=== PATIENT | male | born 1935 | race Caucasian/White ===

== ENCOUNTER 2016-04-29 15:08 | Day surgery (SDC) | payer MEDICARE, OTHER ==
[~2016-04-29] VITALS: Ht 182.9 cm; Wt 63.5 kg
[~2016-04-29 15:08] MED LIST: AMLODIPINE5 M1 PO; ASPIRIN 325MG325 MG PO; BACLOFEN 10MG T10 MG PO; CARDIZEM CD300 MG PO; CITALOPRAM20 MG PO; COREG 12.5 MG12.5 MG PO; DILTIAZEM60 MG PO; ELIQUIS5 MG PO; FLECAINIDE ACET50 MG PO; FLORASTOR250 M1 PO; GABAPENTIN 400400 MG PO; HYDROCODONE-APA1 TA1 PO; HYZAAR 50-12.51 EACH; HYZAAR 50-12.51 EACH PO; KLOR-CON 1010 ME1 PO; LIORESAL 10MG.10 MG PO; LIPITOR20 MG PO; LISINOPRIL 10MG10 MG PO; LISINOPRIL 5MG T5 MG PO; LOSARTAN POTAS100 MG PO; NORCO 325 MG-51 TAB PO; POTASSIUM CHLO20 ME2 PO; POTASSIUM PO; REMERON15 MG PO; VANCOCIN HCL P125 MG PO; VOLTAREN GEL1% TP
[2016-04-29 15:25] VITALS: BP 188/88
[2016-04-29 15:46] VITALS: BP 188/88
[2016-04-29 15:48] VITALS: BP 185/87
--- NOTE | 2016-04-29 15:56 | Procedure Note ---
Procedure detail Date of procedure: 04/29/16 Anesthesiologist: Rome lew CRNA Complications: None Pre-procedure diagnosis: LEFT sacroiliitis. Post-procedure diagnosis: Same. 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 Patient also states he's having some continued LEFT buttock pain that he describes as sharp, stabbing. He has extreme point tenderness over the LEFT SI joint. I discussed in detail with him regarding a LEFT SI joint injection. He wishes to proceed. Patient also complaining of some LEFT leg pain to the knee. Patient is a for LEFT SI joint injection. Procedure detail: Procedure: Left sacroiliac injection under fluoroscopy Informed consent was obtained and the risk and benefits of the procedure were explained to the patient.~ The patient was taken to the procedure room and noninvasive monitors were placed including noninvasive blood pressure cuff and pulse oximeter.~ The patient was placed prone on the procedure table.~ The~ left hip was cleansed using Betadine as a cleansing solution.~ C-arm fluorosocpy was used to view the left SI joint.~ The skin and subcutaneous tissues were anesthetized using Lidocaine 1.5% and a 25-gauge needle.~ After this, a 22-gauge spinal needle was inserted under fluoroscopic guidance into the inferior aspect of the left SI joint.~ Omnipaque dye was injected and a good spread was seen throughout the joint.~ After this, approximately 5 mL of bupivacaine 0.25% and Depo-Medrol 40 mg was incrementally injected into the sacroiliac joint.~ The patient tolerated the procedure well with no complications.~ The patient was observed in the Pain Clinic for a period of 30-45 minutes, then discharged home neurologically intact.~ Plan and disposition: Patient was evaluated 10 minutes post procedure. Patient reports one or percent improvement terms of his LEFT hip pain. Clinic follow-up with us pain clinic for further evaluation. at [id number]
[2016-04-29 15:59] VITALS: BP 191/78
== END 2016-04-29 15:59 | disposition home or self-care (01) ==
LOC: PM 15:08
PROC: 3E0U33Z Introduction of Anti-inflammatory into Joints, Percutaneous Approach (ICD-10-PCS; principal; 2016-04-29)
PROC: 3E0U3BZ Introduction of Anesthetic Agent into Joints, Percutaneous Approach (ICD-10-PCS; 2016-04-29)
DX: M46.1 Sacroiliitis, not elsewhere classified (principal)
CPT/HCPCS: G0260; J1040